=== PATIENT | female | born 1945 | race Caucasian/White ===

== ENCOUNTER → 2020-07-11 12:05 | Outpatient (CLI) | payer MEDICARE, SELFPAY ==
--- NOTE | ~2020-07-11 | MM_ITS ---
EXAMINATION: MM screening [facility] BI w vane HISTORY: Screening mammogram TECHNIQUE: Craniocaudal and mediolateral oblique 3-D tomosynthesis images were obtained and synthetic 2-D images were generated. CAD analysis was submitted and interpreted. COMPARISON: 06/01/2019, 05/27/2018, 03/20/2017 BREAST PARENCHYMAL COMPOSITION: The breasts are heterogeneously dense, which may obscure small masses . FINDINGS: Scattered benign-appearing calcifications are present. There is no evidence of suspicious m ass, calcification, or architectural distortion to suggest malignancy in either breast. There has bee n no suspicious interval change. IMPRESSION: 1. No mammographic evidence of malignancy. 2. Recommend routine screening mammography in one year. BI-RADS Category 2: Benign finding(s). Reviewed, dictated and finalized at location A. 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
--- NOTE | ~2020-07-11 | DEXA_ITS ---
Bone Density Report Name: Augusta Mcarthur Age: 74 Sex: Female Ethnicity: White Date of : 1945 Indication: postmenopausal; screening for osteoporosis; height loss; Referring Provider: MANJEET MONDRAGON Study: Bone densitometry was performed. Exam Date: July 11, 2020 Accession number: [id number] Bone Density: Region BMD T-score Z-score Classification AP Spine (L1-L4) 1.056 0.1 2.4 Normal Femoral Neck (Left) 0.716 -1.2 0.8 Osteopenia Total Hip (Left) 0.936 0.0 1.7 Normal Femoral Neck (Right) 0.734 -1.0 1.0 Normal Total Hip (Right) 0.923 -0.2 1.6 Normal Total Hip Mean 0.930 -0.1 1.7 Normal World Health Organization criteria for BMD impression classify patients as: Normal (T-score at or above -1.0), Osteopenia (T-score between -1.0 and -2.5), or Osteoporosis (T-score at or below -2.5). 10-year Fracture Risk(1): Major Osteoporotic Fracture 10% Hip Fracture 1.6% Reported Risk Factors: [place] (), Neck BMD=0.716, BMI=24.3 (1) FRAX(R) Version 3.08. Fracture probability calculated for an untreated patient. Fracture probability may be lower if the patient has received treatment. Previous Exams: Region Exam Age BMD T-score BMD Change BMD Change Date g/cm2 vs Baseline vs Previous AP Spine(L1-L4) 07/11/2020 74 1.056 0.1 -0.004 -0.034* 03/20/2017 71 1.090 0.4 0.030* 0.041* 02/25/2014 68 1.049 0.0 -0.011 0.057* 01/15/2010 64 0.992 -0.5 -0.068* -0.093* 12/08/2006 61 1.085 0.3 0.025* 0.025* 12/06/2005 60 1.060 0.1 Total Hip(Left) 07/11/2020 74 0.936 0.0 -0.079* 0.012 03/20/2017 71 0.925 -0.1 -0.090* -0.032* 02/25/2014 68 0.956 0.1 -0.059* -0.015 01/15/2010 64 0.971 0.2 -0.044* -0.046* 12/08/2006 61 1.016 0.6 0.001 0.001 12/06/2005 60 1.015 0.6 Total Hip(Right) 07/11/2020 74 0.923 -0.2 -0.058* 0.020 03/20/2017 71 0.903 -0.3 -0.078* -0.030* 02/25/2014 68 0.933 -0.1 -0.048* 0.010 01/15/2010 64 0.923 -0.2 -0.059* -0.051* 12/08/2006 61 0.974 0.3 -0.007 -0.007 12/06/2005 60 0.981 0.3 *Denotes significance at 95% confidence level, LSC for AP Spine = 0.022 g/cm2, LSC for Total Hip = 0.027 g/cm2 Clinical Information Provided by Patient:
== END ==
PROVIDERS: PCP Family Medicine; Visit Provider Obstetrics & Gynecology Gynecology
DX: Z12.31 Encounter for screening mammogram for malignant neoplasm of breast (principal); Z78.0 Asymptomatic menopausal state; M85.852 Other specified disorders of bone density and structure, left thigh
CPT/HCPCS: 77063; 77067; 77080

== ENCOUNTER → 2021-12-05 13:10 | Outpatient (CLI) | payer MEDICARE, SELFPAY ==
--- NOTE | ~2021-12-05 | MM_ITS ---
EXAMINATION: MM screening lam BI w vane HISTORY: Screening mammogram TECHNIQUE: Craniocaudal and mediolateral oblique 3-D tomosynthesis images were obtained and synthetic 2-D images were generated. CAD analysis was submitted and interpreted. COMPARISON: 07/11/2020, 06/01/2019, 05/27/2018 bilateral screening mammogram examinations BREAST PARENCHYMAL COMPOSITION: The breasts are extremely dense, which lowers the sensitivity of mamm ography. FINDINGS: Numerous calcifications are scattered throughout the fibroglandular stroma of both breasts, mostly secretory type calcifications, with some scattered benign calcified microhematomas as well. N o malignant calcifications are evident. There is no evidence of suspicious mass, calcification, or ar chitectural distortion to suggest malignancy in either breast. There has been no suspicious interval change. IMPRESSION: 1. No mammographic evidence of malignancy. 2. Recommend routine screening mammography in one year. BI-RADS Category 2: Benign finding(s). Reviewed, dictated and finalized at location A.
== END ==
PROVIDERS: PCP Family Medicine; Visit Provider Obstetrics & Gynecology Gynecology
DX: Z12.31 Encounter for screening mammogram for malignant neoplasm of breast (principal)
CPT/HCPCS: 77063; 77067

== ENCOUNTER → 2022-12-25 13:17 | Outpatient (CLI) | payer MEDICARE, SELFPAY ==
--- NOTE | ~2022-12-25 | MM_ITS ---
EXAMINATION: MM screening lam BI w vane HISTORY: Screening mammogram TECHNIQUE: Craniocaudal and mediolateral oblique 3-D tomosynthesis images were obtained and synthetic 2-D images were generated. CAD analysis was submitted and interpreted. COMPARISON: 12/05/2021, 07/11/2020, 06/01/2019 bilateral screening mammogram examinations BREAST PARENCHYMAL COMPOSITION: The breasts are heterogeneously dense, which may obscure small masses . FINDINGS: Numerous bilateral benign calcifications, primarily secretory type. Suggestion of new 5 mm rounded mass in the posterior central lower right breast on craniocaudal view, not definitively localized on the lateral projection. Diagnostic right mammogram and right breast ul trasound examination are recommended. Otherwise there is no evidence of suspicious mass, calcification, or architectural distortion to sug gest malignancy in either breast. There has been no other suspicious interval change. IMPRESSION: 1. Possible new 5 mm mass in the lower central right breast on craniocaudal projection 2. Diagnostic right mammogram and right breast ultrasound examination are recommended BI-RADS Category 0: Incomplete: Needs additional imaging evaluation. Reviewed, dictated and finalized at location A. IMPRESSION: 1. Possible new 5 mm mass in the lower central right breast on craniocaudal pro jection 2. Diagnostic right mammogram and right breast ultrasound examination are recom mended BI-RADS Category 0: Incomplete: Needs additional imaging evaluation.
== END ==
PROVIDERS: PCP Family Medicine; Visit Provider Family Medicine
DX: Z12.31 Encounter for screening mammogram for malignant neoplasm of breast (principal); R92.8 Other abnormal and inconclusive findings on diagnostic imaging of breast
CPT/HCPCS: 77063; 77067